=== PATIENT | male | born 1985 | race African-American/Black ===

== ENCOUNTER → 2018-04-27 13:37 | Outpatient (CLI) | payer OTHER, SELFPAY ==
--- NOTE | 2018-04-27 | DI.MRI.S_ITS ---
PROCEDURE: MR KNEE RT WO CON INDICATIONS: Sprain of anterior cruciate ligament of unspecifie TECHNIQUE: Noncontrast sagittal PD fast spin echo and T2 fast spin echo with fat saturation, sagittal 3-D FLASH with fat saturation; coronal T1 spin echo and PD fast spin echo with fat saturation, and axial PD fast spin echo with fat saturation through the knee. COMPARISON: None. FINDINGS: Image quality: Diagnostic. Bones and joint: There is no acute fracture or dislocation. No suspicious osseous lesions are evident. There is a small knee joint effusion with mild edema identified within a Ngo's cyst. There is heterogeneity and irregularity identified involving the surface of the hyaline articular cartilage of the patellofemoral compartment of the knee. No full-thickness cartilaginous defects are identified. However, cartilaginous fissuring may be present. The hyaline articular cartilage within the medial and lateral tibiofemoral compartments appears to be within normal limits. Cruciate ligaments: The anterior cruciate ligament is noted to be diffusely thickened and edematous. There is at least moderate grade partial-thickness tearing. A nondisplaced full-thickness tear is difficult to exclude. The posterior cruciate ligament is intact. Menisci: There is low-grade partial-thickness tearing identified involving the posterior root of the medial meniscus (image 20, series 7). No additional tears of the medial meniscus are appreciated. The lateral meniscus is intact and otherwise unremarkable. Medial structures: The medial collateral ligament is intact. The semimembranosus tendon insertion is intact. The imaged portions of the pes anserinus tendons are unremarkable. No significant fluid is contained within the pes anserinus bursa. Lateral structures: The popliteal tendon is intact. The lateral collateral ligament proper (fibular collateral ligament) and the proximal tibiofibular ligaments are intact. The distal aspect of the biceps femoris tendon and the iliotibial band are intact. Anterior structures: The quadriceps and patellar tendons are intact. There is no significant edema in the infrapatellar fat pad. IMPRESSION: 1. Early patellofemoral chondromalacia. 2. At least moderate grade intrasubstance partial-thickness tearing of the anterior cruciate ligament. An undersurface full-thickness tear is difficult to exclude and clinical correlation is recommended. 3. Low-grade partial-thickness tear involving the posterior root of the medial meniscus. 4. Small knee joint effusion. Dictated by: Homar Do M.D. on 04/27/2018 at 16:25 Approved by: Homar Do M.D. on 04/27/2018 at 16:28
== END ==
PROVIDERS: Visit Provider Orthopaedic Surgery
DX: S83.511A Sprain of anterior cruciate ligament of right knee, initial encounter (principal); S83.241A Other tear of medial meniscus, current injury, right knee, initial encounter; M22.41 Chondromalacia patellae, right knee; M25.461 Effusion, right knee
CPT/HCPCS: 73721